=== PATIENT | female | born 1980 | race Caucasian/White ===

== ENCOUNTER 2021-01-12 18:15 | Emergency (ER) | payer OTHER ==
--- OUTSIDE RECORDS SUMMARY | 2021-01-12 18:18 | XMS REPORT | Continuity of Care Document ---
:[address] [facility] t Address [address] [place] [address] Dr. Leon [address] [place] [id number] Care Team Providers Name Role Phone Unavailable Unavailable Unavailable Problems This patient has no known problems. Allergies, Adverse Reactions, Alerts This patient has no known allergies or adverse reactions. Medications This patient has no known medications. Procedures This patient has no known procedures. Encounters Start End Encounter Admission Attending Care Care Encounter Source Date/Time Date/Time Type Type Clinicians Facility Department ID 2020-09-17 2020-09-17 Emergency E [facility] [id number] BL 13:15:00 13:15:00 Results This patient has no known results.
--- NOTE | 2021-01-12 22:03 | EDPHYS ---
Physician Documentation [facility] Name: Keesha Jim Age: 40 yrs Sex: Female : 1980 Arrival Date: 01/12/2021 Time: 18:22 Bed DIS1 Private MD: ED Physician Carlos Ann HPI: 01/12 21:57 This 40 yrs old Female presents to ER via Ambulatory with complaints of sp3 Seizure, Shortness Of Breath. 21:57 -year-old female with a history of seizure disorder and anxiety/depression presents sp3 with multiple seizures per day for the last 4 days. Patient's neurologist is in [place] and she has not yet called him. Patient is currently on Keppra, Depakote, as well as depression medications. Patient denies head injury, mouth injury, fever, neck pain, chest pain, shortness of breath, URI symptoms, fever, abdominal pain, nausea, vomiting, sensory changes, motor weakness, cranial nerve changes, or any other ROS at this time. Patient has not had any seizure activity in the emergency department.. 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 - Social history:: Smoking status: Patient denies any tobacco usage or history of. Patient uses alcohol, occasionally. ROS: 21:59 Constitutional: Negative for fever, chills, and weight loss, Eyes: Negative for injury, sp3 pain, redness, and discharge, Neck: Negative for injury, pain, and swelling, Cardiovascular: Negative for chest pain, palpitations, and edema, Respiratory: Negative for shortness of breath, cough, wheezing, and pleuritic chest pain, Abdomen/GI: Negative for abdominal pain, nausea, vomiting, diarrhea, and constipation, Back: Negative for injury and pain, : Negative for injury, bleeding, discharge, and swelling, Neuro: Negative for headache, weakness, numbness, tingling, and seizure, Allergy/Immunology: Negative for hives, rash, and allergies, Endocrine: Negative for neck swelling, polydipsia, polyuria, polyphagia, and marked weight changes. 21:59 All other systems are negative. Exam: 21:59 Constitutional: This is a well developed, well nourished patient who is awake, alert, sp3 and in no acute distress. Head/Face: Normocephalic, atraumatic. Eyes: Pupils equal round and reactive to light, extra-ocular motions intact. Lids and lashes normal. Conjunctiva and sclera are non-icteric and not injected. Cornea within normal limits. Periorbital areas with no swelling, redness, or edema. ENT: Nares patent. No nasal discharge, no septal abnormalities noted. External auditory canals are clear. Oropharynx with no redness, swelling, or masses, exudates, or evidence of obstruction, uvula midline. Mucous membranes moist. Neck: Trachea midline, no thyromegaly or masses palpated, and no cervical lymphadenopathy. Supple, full range of motion without nuchal rigidity, or vertebral point tenderness. No Meningismus. Chest/axilla: Normal chest wall appearance and motion. Nontender with no deformity. No lesions are appreciated. Cardiovascular: Regular rate and rhythm with a normal S1 and S2. No gallops, murmurs, or rubs. Normal PMI, no JVD. No pulse deficits. Respiratory: Lungs have equal breath sounds bilaterally, clear to auscultation and percussion. No rales, rhonchi or wheezes noted. No increased work of breathing, no retractions or nasal flaring. Abdomen/GI: Soft, non-tender, with normal bowel sounds. No distension or tympany. No guarding or rebound. No evidence of tenderness throughout. Back: No spinal tenderness. No costovertebral tenderness. Full range of motion. Skin: Warm, dry with normal turgor. Normal color with no rashes, no lesions, and no evidence of cellulitis. MS/ Extremity: Pulses equal, no cyanosis. Neurovascular intact. Full, normal range of motion. Neuro: Awake and alert, GCS 15, oriented to person, place, time, and situation. Cranial nerves II-XII grossly intact. Motor strength 5/5 in all extremities. Sensory grossly intact. Cerebellar exam normal. Normal gait. Psych: Awake, alert, with orientation to person, place and time. Behavior, mood, and affect are within normal limits. Vital Signs: 19:12 BP 122 / 68; Pulse 93; Resp 16; Temp 97.8(TE); Pulse Ox 99% on R/A; Height 4 ft. 11 in. kg (149.86 cm) (R); Pain 0/10; 21:51 BP 118 / 72; Pulse 85; Resp 18; Pulse Ox 98% on R/A; em [place] Coma Score: 19:14 Eye Response: spontaneous(4). Verbal Response: oriented(5). Motor Response: obeys kg commands(6). Total: 15. MDM: 21:27 Patient medically screened. sp3 21:59 Data reviewed: vital signs, nurses notes. ED course: I have offered patient to check sp3 her Depakote levels and generalized labs. I have also advised her that if her labs are normal and there is not any further activity that we can do in the ED other than increase her Keppra dosing. She states that she will go ahead and do that and follow-up with her neurologist and declined any further intervention in the ED. I have advised her to return at any time if she changes her mind. Again no seizure activity has been observed in the ED and patient is not driving. She lives with 4 other people and feels safe at home.. Administered Medications: No medications were administered Disposition Summary: 01/12/21 22:01 Discharge Ordered Location: Home sp3 Condition: Stable sp3 Diagnosis - Conversion disorder with seizures or convulsions sp3 Followup: sp3 - With: Private Physician - When: - Reason: Re-evaluation by your physician Discharge Instructions: - Discharge Summary Sheet sp3 - Seizure, Adult sp3 Forms: - Medication Reconciliation Form sp3 - Thank You Letter sp3 - Antibiotic Education sp3 - Prescription Opioid Use sp3 Signatures: Heike Tripathi, RN RN Carlos Kraft sp3
--- NOTE | 2021-01-12 22:03 | ER ---
Nurse's Notes [facility] Name: Keesha Jim Age: 40 yrs Sex: Female : 1980 Arrival Date: 01/12/2021 Time: 18:22 Bed DIS1 Private MD: Diagnosis: Conversion disorder with seizures or convulsions Presentation: 01/12 19:12 Chief complaint: Patient states: Pt stated, " I've had too many seizures to count today kg and after I have them I'm short of breath. " Pt stated I've had multiple over the last three days. Coronavirus screen: Client denies travel out of the [place] in the last 14 days. At this time, the client does not indicate any symptoms associated with coronavirus-19. Ebola Screen: Patient negative for fever greater than or equal to 101.5 degrees Fahrenheit, and additional compatible Ebola Virus Disease symptoms Patient denies exposure to infectious person. Patient denies travel to an Ebola-affected area in the 21 days before illness onset. Initial Sepsis Screen: Does the patient meet any 2 criteria? No. Patient's initial sepsis screen is negative. Does the patient have a suspected source of infection? No. Patient's initial sepsis screen is negative. Risk Assessment: Do you want to hurt yourself or someone else? Patient reports no desire to harm self or others. Onset of symptoms was January 09, 2021. 19:12 Method Of Arrival: Ambulatory kg 19:12 Acuity: HAJA 3 kg Triage Assessment: 19:14 General: Appears in no apparent distress. Behavior is calm, cooperative, appropriate kg for age, quiet. Pain: Denies pain. Neuro: Reports dizziness, x 3 days. 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 - Social history:: Smoking status: Patient denies any tobacco usage or history of. Patient uses alcohol, occasionally. Screenin:51 Abuse screen: Denies threats or abuse. Denies injuries from another. Nutritional em screening: No deficits noted. Tuberculosis screening: No symptoms or risk factors identified. Fall Risk None identified. Assessment: 21:51 General: Appears in no apparent distress. comfortable, Behavior is calm, cooperative, em appropriate for age. Pain: Denies pain. Neuro: Level of Consciousness is awake, alert, obeys commands, Oriented to person, place, time, situation. Neuro: Reports Seizure activity reported prior to arrival. Cardiovascular: Capillary refill < 3 seconds Patient's skin is warm and dry. Respiratory: Airway is patent Respiratory effort is even, unlabored, Respiratory pattern is regular, symmetrical. GI: Abdomen is flat, non-distended. : No signs and/or symptoms were reported regarding the genitourinary system. EENT: No signs and/or symptoms were reported regarding the EENT system. Derm: No signs and/or symptoms reported regarding the dermatologic system. Musculoskeletal: No signs and/or symptoms reported regarding the musculoskeletal system. Vital Signs: 19:12 BP 122 / 68; Pulse 93; Resp 16; Temp 97.8(TE); Pulse Ox 99% on R/A; Height 4 ft. 11 in. kg (149.86 cm) (R); Pain 0/10; 21:51 BP 118 / 72; Pulse 85; Resp 18; Pulse Ox 98% on R/A; em [place] Coma Score: 19:14 Eye Response: spontaneous(4). Verbal Response: oriented(5). Motor Response: obeys kg commands(6). Total: 15. ED Course: 18:22 Patient arrived in ED. mr 19:14 Triage completed. kg 19:14 Arm band placed on left wrist. kg 21:26 Carlos Ann is Attending Physician. sp3 21:51 Marquis Leon, RN is Primary Nurse. em 21:51 Patient has correct armband on for positive identification. Bed in low position. Call em light in reach. Pulse ox on. NIBP on. 21:51 Patient has correct armband on for positive identification. Placed in gown. em 21:51 No provider procedures requiring assistance completed. em 22:23 Seizure precautions initiated. em 22:23 Patient did not have IV access during this emergency room visit. em Administered Medications: No medications were administered Outcome: 22: Discharge ordered by sp3 22:22 Discharged to home ambulatory. em 22:22 Condition: stable 22:22 Discharge instructions given to patient, Instructed on discharge instructions, follow up and referral plans. Demonstrated understanding of instructions, follow-up care. 22:23 Patient left the ED. em Signatures: Lawanda Giordano Edgar, RN RN em Heike Tripathi, CESAR RN Carlos Kraft sp3
[2021-01-13 00:40] VITALS: TEMP 97.8
[2021-01-13 00:42] VITALS: BP 118/72; O2SAT 98
== END 2021-01-12 22:23 | disposition home or self-care (01) ==
LOC: ER 18:15
DX: F44.5 Conversion disorder with seizures or convulsions (principal); F41.8 Other specified anxiety disorders; Z88.0 Allergy status to penicillin; Z88.8 Allergy status to other drugs, medicaments and biological substances; Z91.010 Allergy to peanuts
CPT/HCPCS: 99283

== ENCOUNTER 2024-06-22 19:08 | Emergency (ER) | payer OTHER ==
--- NOTE | 2024-06-22 20:07 | EDPHYS ---
Physician Documentation [facility] Name: Keesha Jim Age: 43 yrs Sex: Female : 1980 Arrival Date: 06/22/2024 Time: 19:08 Bed 25 Private MD: GILMA Physician Lonnie Kiser HPI: 06/22 19:47 This 43 yrs old Female presents to ER via Ambulatory with complaints of Eye brooke Pain, Dizziness, Headache. 19:47 The patient is experiencing decreased vision, pain, PROBLEMS RIGHT EYE X 3 MONTHS. brooke Onset: The symptoms/episode began/occurred 3 month(s) ago. Duration: the symptoms are continuous. Aggravated by nothing. Alleviated by nothing. Patient wears glasses. The patient has experienced similar episodes in the past, multiple times. 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 - Infectious Disease History:: Denies. - Social history:: Smoking status: Patient denies any tobacco usage or history of. - Family history:: not pertinent. ROS: 19:47 Constitutional: Negative for fever, chills, and weight loss, ENT: Negative for injury, brooke pain, and discharge, Neck: Negative for injury, pain, and swelling, Cardiovascular: Negative for chest pain, palpitations, and edema, Respiratory: Negative for shortness of breath, cough, wheezing, and pleuritic chest pain, Abdomen/GI: Negative for abdominal pain, nausea, vomiting, diarrhea, and constipation, Back: Negative for injury and pain, : Negative for injury, bleeding, discharge, and swelling, MS/Extremity: Negative for injury and deformity, Skin: Negative for injury, rash, and discoloration, Neuro: Negative for headache, weakness, numbness, tingling, and seizure, Psych: Negative for depression, anxiety, suicide ideation, homicidal ideation, and hallucinations, Allergy/Immunology: Negative for hives, rash, and allergies, Endocrine: Negative for neck swelling, polydipsia, polyuria, polyphagia, and marked weight changes, Hematologic/Lymphatic: Negative for swollen nodes, abnormal bleeding, and unusual bruising, 19:47 Eyes: Positive for pain, of the iris of right eye, Exam: 19:47 Constitutional: This is a well developed, well nourished patient who is awake, alert, brooke and in no acute distress. Head/Face: Normocephalic, atraumatic. Eyes: Pupils equal round and reactive to light, extra-ocular motions intact. Lids and lashes normal. Conjunctiva and sclera are non-icteric and not injected. Cornea within normal limits. Periorbital areas with no swelling, redness, or edema. ENT: Nares patent. No nasal discharge, no septal abnormalities noted. Tympanic membranes are normal and external auditory canals are clear. Oropharynx with no redness, swelling, or masses, exudates, or evidence of obstruction, uvula midline. Mucous membranes moist. Neck: Trachea midline, no thyromegaly or masses palpated, and no cervical lymphadenopathy. Supple, full range of motion without nuchal rigidity, or vertebral point tenderness. No Meningismus. Chest/axilla: Normal chest wall appearance and motion. Nontender with no deformity. No lesions are appreciated. Cardiovascular: Regular rate and rhythm with a normal S1 and S2. No gallops, murmurs, or rubs. Normal PMI, no JVD. No pulse deficits. Respiratory: Lungs have equal breath sounds bilaterally, clear to auscultation and percussion. No rales, rhonchi or wheezes noted. No increased work of breathing, no retractions or nasal flaring. Abdomen/GI: Soft, non-tender, with normal bowel sounds. No distension or tympany. No guarding or rebound. No evidence of tenderness throughout. Back: No spinal tenderness. No costovertebral tenderness. Full range of motion. Skin: Warm, dry with normal turgor. Normal color with no rashes, no lesions, and no evidence of cellulitis. MS/ Extremity: Pulses equal, no cyanosis. Neurovascular intact. Full, normal range of motion., bilateral aka Neuro: Awake and alert, GCS 15, oriented to person, place, time, and situation. Cranial nerves II-XII grossly intact. Motor strength 5/5 in all extremities. Sensory grossly intact. Cerebellar exam normal. Normal gait. Psych: Awake, alert, with orientation to person, place and time. Behavior, mood, and affect are within normal limits. Vital Signs: 19:29 BP 122 / 85; Pulse 111; Resp 16; Temp 99(TE); Pulse Ox 97% on R/A; Weight 35.83 kg; hb Height 4 ft. 11 in. ; Pain 8/10; 20:30 BP 130 / 81; Pulse 85; Resp 14; Pulse Ox 100% ; vc1 19:29 Body Mass Index 15.96 (35.83 kg, 149.86 cm) hb 19:29 Pain Scale: Adult hb MDM: 19:24 Medical Screening Exam initiated brooke 19:50 Differential diagnosis: Corneal abrasion of Corneal ulcer of Foreign body in Acute brooke iritis of Acute glaucoma in Ultraviolet keratitis in right eye. Data reviewed: vital signs, nurses notes. Consideration of Admission/Observation Escalation of care including admission/observation considered. I considered the following discharge prescriptions or medication management in the emergency department Medications were administered in the Emergency Department. See MAR. Independent interpretation of the following test(s) in the Emergency Department. Test considered but Not performed: Labs: NO LABS. CT: NO CT HEAD. Care significantly affected by the following chronic conditions: GLAUCOMA, DEPRESSION, ANXIETY, EPILEPSY, TACHYCARDIA. 06/22 19:47 Order name: Vital Signs; Complete Time: 20:33 brooke Administered Medications: 20:24 Drug: Ketorolac IM 30 mg IM once Route: IM; Site: left deltoid; vc1 20:33 Follow up: Response: Medication administered at discharge. vc1 20:24 Drug: Hydrocodone-Acetaminophen PO (7.5 mg-325 mg) 1 tabs PO once Route: PO; vc1 20:33 Follow up: Response: Medication administered at discharge. vc1 20:24 Drug: Ondansetron Oral Disintegrating Tablet Oral Disintegrating Tablet 8 mg PO once vc1 Route: PO; 20:32 Follow up: Response: Medication administered at discharge. vc1 20:32 Drug: Meclizine PO 25 mg PO once Route: PO; vc1 20:32 Follow up: Response: Medication administered at discharge. vc1 Disposition Summary: 06/22/24 20:06 Discharge Ordered Notes: Location: Home brooke Problem: new brooke Symptoms: have improved brooke Condition: Stable brooke Diagnosis - Ocular pain, right eye brooke - Other visual disturbances - RIGHT EYE brooke Followup: brooke - With: Private Physician - When: 2 - 3 days - Reason: Recheck today's complaints, Continuance of care, Re-evaluation by your physician Followup: brooke - With: César Banda MD - When: 2 - 3 days - Reason: Recheck today's complaints, Re-evaluation by your physician Discharge Instructions: - Discharge Summary Sheet brooke - Visual Disturbances brooke Forms: - Medication Reconciliation Form brooke - Antibiotic Education brooke - Prescription Opioid Use brooke - Patient Portal Instructions [facility] - Leadership Thank You Letter [facility] Prescriptions: - diclofenac sodium 25 mg Oral tablet, delayed release (enteric coated) - take 1 tablet ORAL route every 8 hours PRN PAIN; 21 tablet; Refills: 0, Product [facility] Selection Permitted - Meclizine 25 mg Oral Tablet - take 1 tablet ORAL route every 8 hours As needed; 30 tablet; Refills: 0, [facility] Product Selection Permitted Signatures: Lonnie Kiser MD MD cha Baxter, Heather, RN RN hb Randi Quezada RN RN vc1
--- NOTE | 2024-06-22 20:07 | ER ---
Nurse's Notes [facility] Name: Keesha Jim Age: 43 yrs Sex: Female : 1980 Arrival Date: 06/22/2024 Time: 19:08 Bed 25 Private MD: Diagnosis: Ocular pain, right eye;Other visual disturbances-RIGHT EYE Presentation: 06/22 19:29 Chief complaint: Headache, right eye pain, dizziness, and nausea x 2-3 days.. hb Hospitalized for same s/s last March but did not receive a diagnosis. Coronavirus screen: At this time, the client does not indicate any symptoms associated with coronavirus-19. Ebola Screen: No symptoms or risks identified at this time. Mechanism of Injury: No Mechanism of Injury. Initial Sepsis Screen: Does the patient meet any 2 criteria? No. Patient's initial sepsis screen is negative. Does the patient have a suspected source of infection? No. Patient's initial sepsis screen is negative. Risk Assessment: Do you want to hurt yourself or someone else? Patient reports no desire to harm self or others. Onset of symptoms was June 20, 2024. 19:29 Method Of Arrival: Ambulatory hb 19:29 Acuity: HAJA 3 hb Triage Assessment: 20:41 General: Appears in no apparent distress. slender, well groomed, well developed, vc1 Behavior is calm, cooperative, appropriate for age. Pain: Complains of pain in right eye. 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 - Infectious Disease History:: Denies. - Social history:: Smoking status: Patient denies any tobacco usage or history of. - Family history:: not pertinent. Screenin:30 [facility] ED Fall Risk Assessment (Adult) History of falling in the last 3 months, vc1 including since admission No falls in past 3 months (0 pts) Confusion or Disorientation No (0 pts) Intoxicated or Sedated No (0 pts) Impaired Gait No (0 pts) Mobility Assist Device Used No (0 pt) Altered Elimination No (0 pt) Score/Fall Risk Level 0 - 2 = Low Risk Oriented to surroundings, Maintained a safe environment, Educated pt \T\ family on fall prevention, incl call for assistance when getting out of bed. Abuse screen: Denies threats or abuse. Nutritional screening: No deficits noted. Tuberculosis screening: No symptoms or risk factors identified. Assessment: 19:30 Reassessment: Dr. Kiser in triage to evaluate patient. hb 20:32 EENT: Sclera/Cornea. vc1 Vital Signs: 19:29 BP 122 / 85; Pulse 111; Resp 16; Temp 99(TE); Pulse Ox 97% on R/A; Weight 35.83 kg; hb Height 4 ft. 11 in. ; Pain 8/10; 20:30 BP 130 / 81; Pulse 85; Resp 14; Pulse Ox 100% ; vc1 19:29 Body Mass Index 15.96 (35.83 kg, 149.86 cm) hb 19:29 Pain Scale: Adult hb ED Course: 19:12 Patient arrived in ED. gm2 19:24 Lonnie Kiser MD is Attending Physician. brooke 19:32 Triage completed. hb 19:33 Arm band placed on. hb 20:00 Patient has correct armband on for positive identification. Bed in low position. Call vc1 light in reach. Pulse ox on. NIBP on. 20:00 Provided Education on: keep appointment with cardroom manager . vc1 20:05 César Banda MD is Referral Physician. brooke 20:31 No provider procedures requiring assistance completed. Patient did not have IV access vc1 during this emergency room visit. Administered Medications: 20:24 Drug: Ketorolac IM 30 mg IM once Route: IM; Site: left deltoid; vc1 20:33 Follow up: Response: Medication administered at discharge. vc1 20:24 Drug: Hydrocodone-Acetaminophen PO (7.5 mg-325 mg) 1 tabs PO once Route: PO; vc1 20:33 Follow up: Response: Medication administered at discharge. vc1 20:24 Drug: Ondansetron Oral Disintegrating Tablet Oral Disintegrating Tablet 8 mg PO once vc1 Route: PO; 20:32 Follow up: Response: Medication administered at discharge. vc1 20:32 Drug: Meclizine PO 25 mg PO once Route: PO; vc1 20:32 Follow up: Response: Medication administered at discharge. vc1 Medication: 20:32 VIS not applicable for this client. vc1 Outcome: 20:06 Discharge ordered by . brooke 20:41 Discharged to home ambulatory, with significant other, vc1 20:41 Condition: good 20:41 Discharge instructions given to patient, Instructed on discharge instructions, follow up and referral plans. Demonstrated understanding of instructions, follow-up care, medications, Prescriptions given X 2, 20:42 Patient left the ED. vc1 Signatures: Lonnie Kiser MD MD cha Baxter, Heather, RN RN Randi Morrison RN RN vc1 Anabel Stallings [facility]
[2024-06-22] MEDS ORDERED: HYDROCODONE/APAP 7.5/325 MG TAB ONE (20:17)
[2024-06-22] MEDS ORDERED: KETOROLAC 30 MG/ML INJ ONE (20:17)
[2024-06-22] MEDS ORDERED: ONDANSETRON 4 MG (ODT) TAB ONE (20:17)
[2024-06-22] MEDS ORDERED: MECLIZINE HCL 12.5 MG TAB ONE (20:27)
[2024-06-23 04:40] VITALS: TEMP 99
[2024-06-23 04:48] VITALS: BP 130/81; O2SAT 100
== END 2024-06-22 20:42 | disposition home or self-care (01) ==
LOC: ER 19:08
DX: H57.11 Ocular pain, right eye (principal); H53.8 Other visual disturbances; H40.9 Unspecified glaucoma; Z88.0 Allergy status to penicillin; Z88.8 Allergy status to other drugs, medicaments and biological substances; Z91.010 Allergy to peanuts
CPT/HCPCS: J8597; Q0162; 96372; 99284